=== PATIENT | female | born 1945 | race Caucasian/White ===

== ENCOUNTER 2020-02-06 07:44 | Day surgery (SDC) | payer MEDICARE ==
[2020-02-02 15:37] LABS: BASOPHILS % (AUTO) 0.7 % (0-1); EOSINOPHILS # (AUTO) 0.1 X10'3 (0-0.9); EOSINOPHILS % (AUTO) 1.7 % (0-6); HEMATOCRIT 39.5 % (35.0-45.0); HEMOGLOBIN 12.8 g/dl (12.0-16.0); LYMPHOCYTES # (AUTO) 1.1 X10'3 (1.1-4.8); LYMPHOCYTES % (AUTO) 19.3 % (21-51); MEAN CORPUSCULAR HGB CONC 32.4 g/dL (33.0-36.5); MEAN CORPUSCULAR VOLUME 92.7 FL (78-98); MEAN PLATELET VOLUME 8.1 FL (7.4-10.4); MONOCYTES # (AUTO) 0.7 X10'3 (0-0.9); MONOCYTES % (AUTO) 11.2 % (2-12); NEUTROPHILS # (AUTO) 3.9 X10'3 (1.8-7.7); NEUTROPHILS % (AUTO) 67.1 % (42-75); PLATELET COUNT 268 X10'3 (140-440); RED BLOOD COUNT 4.26 X10'6 (4.20-5.60); RED CELL DISTRIBUTION WIDTH 13.4 % (11.5-14.5); WHITE BLOOD COUNT 5.8 X10'3 (4.5-11.0)
[2020-02-02 15:41] LABS: ALBUMIN 3.5 G/DL (3.4-5.0); ANION GAP 7 (8-16); BLOOD UREA NITROGEN 18 MG/DL (7-18); CALCIUM 9.2 MG/DL (8.5-10.1); CHLORIDE 109 MMOL/L (99-107); GLUCOSE 99 MG/DL (70-104); POTASSIUM 4.1 MMOL/L (3.5-5.1); SODIUM 145 MMOL/L (135-145); TOTAL CARBON DIOXIDE 29.5 MMOL/L (24-32); eGFR 61 ML/MIN
[2020-02-02 15:45] LABS: PARTIAL THROMBOPLASTIN TIME 23 SECONDS (22-32)
[~2020-02-06] VITALS: Ht 175.3 cm; Wt 66.2 kg
[2020-02-06] VITALS (12 sets, daily range): BP systolic 102–136; BP diastolic 53–83
[2020-02-06] MEDS ORDERED: normal saline 1,000 ML IV SCH (08:00)
[2020-02-06] MEDS ORDERED: diphenhydrAMINE 25mg capsule PO PRN (08:00)
[2020-02-06] MEDS ORDERED: LORazepam 0.5 MG tablet PO PRN (08:00)
[2020-02-06] MEDS ORDERED: ASPI-611 PO (08:24)
[2020-02-06] MEDS ORDERED: METO25TA6 PO (08:24)
[2020-02-06] MEDS ORDERED: ATOR20TA PO (08:24)
[2020-02-06] MEDS ORDERED: OLME20TA23 PO (08:24)
[2020-02-06] MEDS ORDERED: iohexol 350MG/ML 100ml bottle IV ONE (09:21)
[2020-02-06] MEDS ORDERED: midazolam 2 mg/2 ml injection ONE (09:21)
[2020-02-06] MEDS ORDERED: fentaNYL/PF 50MCG/1 ML 2ML syringe ONE (09:21)
[2020-02-06] MEDS ORDERED: LIDOcaine 1% (10mg/ml)w/preservative injection 20ml MDV ONE (09:21)
[2020-02-06] MEDS ORDERED: nitroGLYCERIN-Tridil 50MG/D5W 250 ML IV ONE (10:00)
[2020-02-06] MEDS ORDERED: heparin 1,000unit/ml 10ml vial 10 ML ONE (10:00)
[2020-02-06] MEDS ORDERED: verapamil 2.5 mg/ml inj IV ONE (10:00)
[2020-02-06] MEDS ORDERED: nitroGLYCERIN 0.4mg SUBLingual tab SL PRN (11:35)
[2020-02-06] MEDS ORDERED: ondansetron/PF 4mg/2ml inj IV PRN (11:35)
[2020-02-06] MEDS ORDERED: OXAZEpam 15mg capsule PO PRN (11:35)
[2020-02-06] MEDS ORDERED: proCHLORperazine 10 MG/2 ml inj IV PRN (11:35)
== END 2020-02-06 14:35 | disposition home or self-care (01) ==
LOC: SSTAY O 07:44 → MED 3N 07:44 → SSTAY O 14:35
PROVIDERS: ATTEND Internal Medicine Interventional Cardiology
DX: R94.39 Abnormal result of other cardiovascular function study (principal); I10 Essential (primary) hypertension; E78.5 Hyperlipidemia, unspecified; J44.9 Chronic obstructive pulmonary disease, unspecified; Z79.01 Long term (current) use of anticoagulants; Z79.899 Other long term (current) drug therapy; Z82.3 Family history of stroke; Z82.49 Family history of ischemic heart disease and other diseases of the circulatory system
CPT/HCPCS: 36415; 80048; 85025; 85610; 85730; 93005; 93458; 99152; C1769; C1894; J1644; J2001; J2250; J3010; Q9967; A4620; A5120; GO378; J3490

== ENCOUNTER 2025-08-16 12:25 | Inpatient (IN) | payer MEDICARE, MEDICAID ==
[2025-08-16] VITALS (12 sets, daily range): BP systolic 96–169; BP diastolic 46–93; PULSE 70–88; RESP 12–20; O2SAT 88–100
[~2025-08-16] VITALS: Ht 175.3 cm; Wt 57.1 kg
[~2025-08-16 12:25] MED LIST: ATOR20TA66 PO; OMEP20CA16 PO
[2025-08-16] MEDS: HYDROmorphone inj. 0.5 MG/0.5 ML DISP.SYRIN IV ONE (12:30)
--- NOTE | 2025-08-16 12:31 | ELECTROCARDIOGRAPH REPORT ---
[facility] Test Date: 2025-08-16 Test Time: 12:28:13 Pat Name: KIRILL CASEY Department: EMERGENCY ROOM Room: Gender: F Shearing Machine Tender: : 1945 Requested By: AMADO ROBERTSON Order Number: [id number] Reading MD: Measurements Intervals [employer] Rate: 94 P: 80 UT: 141 QRS: 0 QRSD: 100 T: 87 QT: 373 QTc: 467 Interpretive Statements Atrial-sensed ventricular-paced rhythm No further analysis attempted due to paced rhythm Please click the below link to view image of tracing.
[2025-08-16] MEDS: ondansetron/PF 4mg/2ml inj IV ONE (12:33)
[2025-08-16 12:39] LABS: MEAN PLATELET VOLUME 8.1 FL (7.4-10.4); RED CELL DISTRIBUTION WIDTH 14.0 % (11.5-14.5)
[2025-08-16] MEDS ORDERED: LIDOcaine 1% 30ml preserv. free vial ONE (12:39)
[2025-08-16] MEDS ORDERED: phenylephrine 10mg/ml inj. ONE (12:39)
--- NOTE | 2025-08-16 12:47 | Physician Documentation ---
Addendum CHIEF COMPLAINT/HPI: The patient is an 80-year-old female who comes here from Dr. Keyanna Crowder's office (cardiology) after he phoned me to state that she has a cardiac perforation with a pericardial effusion and he is arranging for her to go to the laborer demolition for drainage and repair. REVIEW OF SYSTEMS: Unable to obtain secondary to acuity of condition. PHYSICAL EXAMINATION: Vitals and nursing note reviewed. Constitutional: General: Patient is awake, not alert. Appearance: Pale, hypotensive. Patient is ill-appearing.. Cardiovascular: Rate and Rhythm: Normal rate and regular rhythm. Heart sounds: Distant heart sounds. Pulmonary: Effort: No respiratory distress. Breath sounds: No wheezing, rhonchi or rales. MEDICAL DECISION MAKING: This 80-year-old female arrives here with blood pressures as low as 60/38. I initiated a fluid bolus of 500 cc normal saline and push dose epinephrine of 0.1 mg. Fortunately, the laborer demolition team arrived and took her promptly to the laborer demolition for definitive therapy. Departure Disposition: ADMITTED INPATIENT Admitted to Inpatient Unit: to [facility] Admission Level of Care: Critcal Care Impression: Primary Impression: Pericardial effusion with cardiac tamponade Condition: Critical DE AMADO CHRISTINA MD Aug 16, 2025 12:47
[2025-08-16] MEDS ORDERED: midazolam 1 mg/ML 2ml injection ONE ×3 (12:52→14:13)
[2025-08-16] MEDS ORDERED: fentaNYL/PF 50MCG/1 ML 2ML syringe ONE ×2 (12:54→14:13)
[2025-08-16 13:01] LABS: CREATININE 1.00 MG/DL (0.40-0.90); PRO BRAIN NATRIURETIC PEPTIDE 689 PG/ML (0-450); TOTAL CARBON DIOXIDE 26.8 MMOL/L (24-32); eCRCL 46 ML/MIN; eGFR 53 ML/MIN
[2025-08-16] MEDS ORDERED: morphine 4 MG/ML inj SYRINge IV PRN (13:50)
[2025-08-16] MEDS: morphine 4 MG/ML inj SYRINge IV PRN ×2 (13:57→18:56)
[2025-08-16] MEDS ORDERED: epiNEPHrine 0.1mg/ml 10ml syringe ONE (14:00)
[2025-08-16] MEDS ORDERED: ALEN70TA80 PO (14:55)
[2025-08-16] MEDS ORDERED: APIX5TAB3 PO (14:55)
[2025-08-16] MEDS ORDERED: EMPA10TA PO (14:55)
[2025-08-16] MEDS ORDERED: ROSU10TA98 PO (14:55)
[2025-08-16] MEDS ORDERED: LOSA25TA41 PO (14:55)
[2025-08-16] MEDS ORDERED: PREG25CA19 PO (14:55)
[2025-08-16] MEDS ORDERED: METO-395 PO (14:55)
[2025-08-16] MEDS ORDERED: CYCL-1 PO (14:55)
--- NOTE | 2025-08-16 15:09 | HISTORY AND PHYSICAL ---
History of Present Illness End CC ~ Admission Diagnosis:.: HYPOTENSION History of Present Illness S/P PPM with complicated intra-op resulting in Hypotension due to Hemopericardium + Tamponade requiring urgent pericardiocentesis of 500ml of blood. Allergies: Coded Allergies: gabapentin (Verified Allergy, Unknown, unknown, 08/16/25) Home Medications Home Medications Active Reported Pregabalin 25 Mg Capsule 1 Cap PO BID Cyclobenzaprine* (Cyclobenzaprine HCl) 10 Mg Tablet 1 Tab PO BID Rosuvastatin Calcium 10 Mg Tablet 1 Tab PO HS Alendronate Sodium 70 Mg Tablet 1 Tab PO Q7D Losartan Potassium 25 Mg Tablet 1 Tab PO DAILY Jardiance (Empagliflozin) 10 Mg Tablet 1 Tab PO DAILY Eliquis (Apixaban) 5 Mg Tablet 1 Tab PO BID Metoprolol Succinate 25 Mg Tab.sr.24h 1 Tab PO DAILY Past Surgical History Past Surgical History: noncontributory Past Family History Patient History: FH: CABG (coronary artery bypass surgery) FATHER FH: heart failure FATHER FH: stroke MOTHER, Onset:60 years & older FH: sudden cardiac (SCD) Brother, Onset:50's - 60 Past Social History Alcohol Use: None Drug Use: None Advance Care Planning Advanced Care plannin - 30 Minutes Review of Systems Psychiatric: Reports: anxiety Physical Exam Last Vital Signs recorded: Heart Rate: 88, Respiratory Rate: 14, BP: 125/65, Pulse Oximetry: 100, Weight: 75.000 General Appearance: mild distress Neck: full range of motion Respiratory: lungs clear Cardiovascular: normal peripheral pulses, regular rate, rhythm Peripheral Pulses: 1+ carotid (R), 1+ carotid (L), 1+ radial (R), 1+ radial (L), 1+ femoral (R), 1+ femoral (L), 1+ dorsalis pedis (R), 1+ dorsalis pedis (L), 1+ posterior tib (R), 1+ posterior tib (L), 1+ other Gastrointestinal: bowels sounds present Extremities: normal inspection Neurologic: oriented x4 Psychiatric: anxiety Results Diagram Lab Result Diagram: 08/16/25 1233 08/16/25 1233 Assessment/Plan 1-Hemopericardium/Tamponade -S/P Pericardiocentesis -Monitor output -Echo -Supportive Jackie Arevalo CC time 35min LAMINE AREVALO MD Aug 16, 2025 15:09
[2025-08-16] MEDS: HYDROcodone/acetaminophen 10/325mg tab PO PRN (16:25)
[2025-08-16] MEDS ORDERED: ondansetron/PF 4mg/2ml inj IV PRN (16:50)
--- NOTE | 2025-08-16 18:48 | CARDIOLOGY REPORT ---
APPROVED REPORT EXAM: Limited 2D Echocardiogram. Patient Location: CARDIAC L D RN Blood Pressure: 116/56 mmHg Heart Rate: 85 bpm Rhythm: SINUS Indications PERICARDIAL EFFUSION / TAMPONADE S/P BIVENTRICULAR PACEMAKER INSERTION 450 CCS OF BLOODY PERICARDIAL FLUID REMOVED Overhead Line Worker: Padmini Crowder MD Previous echo: 07/11/25 [facility] (EF 30-40%, mild septal hypertrophy, mild TR, mild MR, no pericardial effusion) LEFT VENTRICLE Normal LV size and wall thickness. Overall systolic function is moderately reduced. LVEF is about 40%. RIGHT VENTRICLE RV appears normal in size with diastolic collapse noted on M-Mode. Function appears improved s/p pericardiocentesis. Pacemaker visualized in right heart and appears to be extending out of the RV free wall/apex into the pericardial space. PERICARDIUM Moderate circumferential pericardial effusion with starting signs of hemodynamic compromise. Wire inserted into pericardium, 450 ccs of bloody pericardial fluid removed. No obvious residual pericardial effusion. Other Information Study Quality: Technically limited due to urgency. Conclusion Normal LV size and wall thickness. Overall systolic function is moderately reduced. LVEF is about 40%. RV appears normal in size with diastolic collapse noted on M-Mode. Function appears improved s/p pericardiocentesis. Pacemaker visualized in right heart and appears to be extending out of the RV free wall/apex into the pericardial space. Moderate circumferential pericardial effusion with starting signs of hemodynamic compromise. Wire inserted into pericardium, 450 ccs of bloody pericardial fluid removed. No obvious residual pericardial effusion.
--- NOTE | 2025-08-16 18:54 | CARDIOLOGY REPORT ---
APPROVED REPORT EXAM: Limited 2D Echocardiogram. Patient Location: 2009 Blood Pressure: 145/78 mmHg Heart Rate: 80 bpm Rhythm: NSR Indications Reasses pericardial effusion post pericardiocentesis Pericardialcentesis 1300 - 500 cc fluid removal PACEMAKER 08/16/25 1100 CVC Concrete Technician: Colby Crowder MD Previous echo: 08/16/25 [facility] EF: 40%; nlLVL modlv DECR FX; nlRV; modPE-W/ early HEMOcomp; LEFT VENTRICLE Normal LV size and wall thickness. Overall systolic function is mildly decreased function. LVEF is 40%. RIGHT VENTRICLE RV is normal size and function. Pacemaker wire in right heart. RV apical wire appears to be thru the apex. PERICARDIUM Normal pericardium. Trivial effusion without without hemodynamic compromise. Conclusion Normal LV size and wall thickness. Overall systolic function is mildly decreased function. LVEF is 40%. RV is normal size and function. Pacemaker wire in right heart. RV apical wire appears to be thru the apex. Normal pericardium. Trivial effusion without without hemodynamic compromise.
--- NOTE | 2025-08-16 19:10 | CARDIAC CATH REPORT ---
Cardiac Cath Report Providers to CC CC: HUONG RODRÍGUEZ MD Procedure Comments: 1. Pericardiocentesis Brief History/Indications: 80yo woman who had BiV ICD placed complicated by tamponade referred for evaluation Techniques: Consent was obtained and a time-out was completed verifying correct patient, procedure, site, and positioning. The patients thorax was prepped and draped in sterile fashion. 1% Lidocaine was used to anesthetize the surrounding skin area. Ultrasound was used to identify the fluid and observe the needle entering the pericardial space. The needle was introduced into the pericardial space. The wire was then advanced into the space over which a pericardial drain placed after which approximately 800cccc of bloody fluid was drained. The drain was sutured in place. The patient tolerated the procedure well and there were no complications. Findings Findings: ~ 450cc of bloody pericardial effusion. SBP improved post pericardiocentesis to ~ 120mmHg Results Results: 1. Tamponade with ~ 450cc of bloody pericardial effusion drained. 2. Keep drain in place, repeat TTE at 4 hours if no further drainage FLOR[place] RODRÍGUEZ MD Aug 16, 2025 19:10
[2025-08-16] MEDS ORDERED: hydrALAZINE 20mg/ml inj. IV PRN (20:20)
[2025-08-16] MEDS: metoprolol succinate 25mg (24-HOUR) SR. Tablet PO SCH (20:59)
[2025-08-17] VITALS (28 sets, daily range): BP systolic 73–131; BP diastolic 31–58; PULSE 60–84; RESP 10–22; O2SAT 97–100
[2025-08-17 04:57] LABS: MEAN PLATELET VOLUME 9.1 FL (7.4-10.4); RED CELL DISTRIBUTION WIDTH 14.4 % (11.5-14.5)
[2025-08-17 06:18] LABS: CREATININE 1.07 MG/DL (0.40-0.90); PHOSPHORUS 4.3 MG/DL (2.3-4.5); TOTAL CARBON DIOXIDE 27.2 MMOL/L (24-32); eCRCL 37 ML/MIN; eGFR 49 ML/MIN
[2025-08-17] MEDS ORDERED: HYDR-3973 PO (07:34)
[2025-08-17] MEDS: normal saline 1000ml 1,000 ML IV ONE ×2 (10:09→14:16)
--- NOTE | 2025-08-17 11:59 | PROGRESS NOTE- Residence ---
Progress Note - Resident Providers to CC Resident Creating Document: SHAI PRITCHARD, NAYANA ~ Antibiotic Timeout Antibiotic Ordered?: No Subjective Patient seen and examined at the bedside today. The patient stated that she was feeling dizzy since waking up today morning. She denied any shortness of breath, chest pain, nausea or vomiting. She denied any other concerns or complaints at the moment. Objective Vital Signs Date Time Temp Pulse Resp B/P (MAP) Pulse Ox O2 Delivery O2 Flow Rate FiO2 08/17/25 10:30 97.9 72 12 95/51 (66) 100 Nasal Cannula 2.0 Result Diagram: 08/17/25 0440 08/17/25 0507 General: Awake and Alert, appears weak. HEENT: Conjunctiva pink, Sclera clear, Mucus Membranes moist. Neck: Supple without masses and tenderness. Resp: Unlabored. Lungs clear to auscultation bilaterally. Heart: Regular Rate and rhythm, normal S1 and S2 without murmur, rub or gallop. Abdomen: Soft and non tender no organomegaly Extremities: No cyanosis,clubbing or edema. Skin: Warm and Dry. Neurology: Oriented to time place and person. Cranial nerves 2-12 intact. No focal motor or sensory deficits. Assessment Assessment 80 years old female with past medical history congestive heart failure with reduced ejection fraction, atrial fibrillation, history of colon cancer, hyperlipidemia, is admitted in the ICU for evaluation and management of obstructive shock secondary to cardiac tamponade which she developed while having a permanent pacemaker placed yesterday. Plan Plan Obstructive shock Cardiac tamponade Hemopericardium Status post pericardiocentesis POD #1 Patient underwent emergent pericardiocentesis by Dr. Crowder yesterday and approximately 450 cc of fluid was drained. There was a drain placed which has been discontinued today morning by Dr. Crowder. The patient underwent a repeat echocardiogram post pericardiocentesis which shows overall systolic function mildly decreased and left ventricular ejection fraction of 40%. There was trivial effusion without hemodynamic compromise the post pericardiocentesis. The patient appears to be hypotensive today morning. Dr. Crowder was consulted who recommended IV fluid resuscitation and a repeat echocardiogram. We will follow up with a repeat echocardiogram. Continue management as per the protective signal repairer. History of AFib The patient appears to be in sinus rhythm currently. Her home Eliquis is on hold. Heart rate is controlled. Congestive heart failure with reduced ejection fraction Currently not in acute exacerbation The patient does not appear to be fluid overloaded. Currently on 2 L oxygen via nasal cannula. We will wean the patient off oxygen as tolerated. Skip Hoist Engineer managing the patient's primarily. We will restart GDMT once the patient is hemodynamically stable. Hyperlipidemia Awaiting med reconciliation. DVT prophylaxis: SCDs GI prophylaxis: None Diet: Heart healthy diet Disposition: Continue medical management and close monitoring of the patient's vitals. Follow up with a repeat echocardiography as recommended by the protective signal repairer. In case the patient's condition stabilizes she will be downgraded to PCU in the next 12-24 hours. Shai Pritchard MD Internal Medicine Resident, PGY-3 Date of Service: Aug 17, 2025 Billing Provider: LAMINE NICHOLSON MD,SHAI NARAYAN, RES Aug 17, 2025 11:59
[2025-08-17] MEDS: midodrine 5mg tablet PO SCH (12:16)
[2025-08-17] MEDS: NORepinephrine 8mg/ 250ml NS 250 ML IV SCH (15:23)
[2025-08-17] MEDS: NORepinephrine 8mg/ 250ml NS 250 ML IV ONE (15:24)
--- NOTE | 2025-08-17 17:32 | PROGRESS NOTE ---
Progress Note Cardiology Providers to CC ~ Subjective Subjective Briefly, patient is an 80-year-old female who presented secondary to acute pericardial effusion with tamponade. He has not had history of systolic heart failure. She was undergoing by BV ICD placement. Had approximately 450 cc of bloody pericardial effusion removed. Prior to pericardial centesis she had significant hypotension which improved after procedure. Pericardial drain was removed after a few hours. This morning underwent limited echo with no significant pericardial effusion found. Patient is resting comfortably in the ICU. She reports her pain is currently well-controlled but does have pain with inspiration. She has a had low blood pressure and is now on Levophed. Was dizzy this morning when going from as lying position to a sitting position. She was found to be orthostatic. IV fluids were administered. She had her pacemaker interrogated and has been normal function in all of her leads. Objective Result Diagram: 08/17/25 0440 08/17/25 0507 Objective General: Awake, alert, oriented. No apparent distress. Fatigued appearing. Respiratory: Lungs are clear to auscultation bilaterally. No respiratory distress. Chest: Normal shape and size. No accessory muscle use. Cardiovascular: Regular rate and rhythm. S1-S2. No murmur, gallop, rub. Extremities: No lower extremity edema,. Neurologic: Alert and oriented x4. Nonfocal Psychiatric: Normal mood and affect. Skin: Normal color. Warm and dry. Problem\Assessment\Plan Additional Plan Patient presented for pericardial effusion with tamponade falling ICD placement. The following is her problem list: Pericardial effusion with tamponade Resolved after pericardial centesis. --we will monitor closely. Follow up outpatient. Hypotension Not currently with the obstruction therefore not the underlying etiology. BiV ICD was interrogated with normal device function in the leads. Currently on Levophed. Management per the windows deployment technician group. Heart failure with reduced ejection fraction, chronic Currently hypotensive. Recommend restarting guideline directed medical therapy as vital signs allow Case discussed with Dr. Josue Crowder. For any further cardiology needs please contact him directly. Supervising Physician: MARQUES Soto NP Aug 17, 2025 17:32
[2025-08-17] MEDS: COMMUNICATION ORDER 1 EA MISC MC ONE (19:25)
[2025-08-17] MEDS: metoprolol succinate 25mg (24-HOUR) SR. Tablet PO SCH (20:00)
--- NOTE | 2025-08-17 20:49 | PROGRESS NOTE ---
Daily Progress Note Providers to CC ~ Antibiotic Timeout Antibiotic Ordered?: No Subjective Patient seen and examined at the bedside today. The patient stated that she was feeling dizzy since waking up today morning. Patient was hypotensive and evaluated in CICU today. was present at bedside Objective Vital Signs Date Time Temp Pulse Resp B/P (MAP) Pulse Ox O2 Delivery O2 Flow Rate FiO2 08/17/25 20:14 123/54 08/17/25 18:00 65 17 100 Nasal Cannula 2.0 08/17/25 10:30 97.9 Result Diagram: 08/17/25 0440 08/17/25 0507 General-patient is ill-appearing, able to communicate HEENT-atraumatic normocephalic, neck supple without elevated JVD, Eyes-no icterus or pallor seen in eyes Chest-clear to auscultation bilaterally, breathing nonlabored no tachypnea, no wheezing, no crepitation, no crackles. Heart-S1-S2 normal, regular heart rate no murmur Abdomen bowel sounds positive on auscultation, soft nondistended nontender no guarding, no rigidity Neurology-grossly intact, nonfocal awake cooperated during physical examination Extremity- no pedal edema Problem\Assessment\Plan 80 years old female with past medical history congestive heart failure with reduced ejection fraction, atrial fibrillation, history of colon cancer, hyperlipidemia, is admitted in the ICU for evaluation and management of obstructive shock secondary to cardiac tamponade which she developed while having a permanent pacemaker placed yesterday. Obstructive shock Cardiac tamponade Hemopericardium Status post pericardiocentesis POD #1 History of AFib Congestive heart failure with reduced ejection fraction Hyperlipidemia Patient's current condition is guarded we will continue to follow patient along with the worldwide chief creative officer team. Date of Service: Aug 17, 2025 Billing Provider: NIKUNJ SAINI MD Common Visit Codes: [id number] INP/OBS CARE(MOD) NIKUNJ SAINI MD Aug 17, 2025 20:49
[2025-08-18] VITALS (12 sets, daily range): BP systolic 103–129; BP diastolic 46–67; PULSE 61–80; RESP 10–19; O2SAT 95–100
--- NOTE | 2025-08-18 05:24 | CARDIOLOGY REPORT ---
APPROVED REPORT EXAM: Limited 2D, Doppler, and color-flow Echocardiogram. Patient Location: 2009 Blood Pressure: 95/51 mmHg Heart Rate: 76 bpm Indications Hypotension Re-Evaluate Pericardial Effusion/Tamponade GLASS FURNACE TENDER: Colby Crowder MD Previous ECHO: 08[facility]/25[facility], EF: 40; trivial effusion; Pacemaker wire appears to be throught the RV apex 2D Dimensions IVC 19.56 mm Tricuspid Valve TR P. Velocity 213 cm/s RAP ESTIMATE 10 mmHg TR Peak Gr. 18 mmHg RVSP 28 mmHg LEFT VENTRICLE Normal LV size and wall thickness. Overall systolic function is moderately decreased. LVEF is 40-45%. RIGHT VENTRICLE Right ventricle appears mildly dilated with adequate function. GRE[employer]ESSELS The IVC is normal in size and collapses >50% with inspiration. PERICARDIUM Trace circumferential pericardial effusion. Pacemaker wire appears to be through the RV apex. No echo indications of pericardial tamponade. Other Information Study Quality: Fair Conclusion Normal LV size and wall thickness. Overall systolic function is moderately decreased. LVEF is 40-45%. Right ventricle appears mildly dilated with adequate function. Trace circumferential pericardial effusion. Pacemaker wire appears to be through the RV apex. No echo indications of pericardial tamponade.
[2025-08-18 06:08] LABS: MEAN PLATELET VOLUME 8.7 FL (7.4-10.4); RED CELL DISTRIBUTION WIDTH 13.1 % (11.5-14.5)
--- NOTE | 2025-08-18 06:17 | PROGRESS NOTE ---
Progress Note Dictate Providers to CC ~ Progress Note: No new acute issues overnight. Off pressors Central Line/PICC still needed: N\A Connors Indications Met/Not Met: F/C Indications Not Met Antibiotic Ordered?: No Subjective Subjective Comfortable Objective Vitals Vital Signs Date Time Temp Pulse Resp B/P (MAP) Pulse Ox O2 Delivery O2 Flow Rate FiO2 08/18/25 06:00 97.7 64 14 110/46 (67) 99 Nasal Cannula 2.0 Lab Results: 08/17/25 0440 08/17/25 0507 Objective Heart: S1-2 reg Lungs: Clear Abdomen: Soft, non-tender, BS (+) Ext: No Edema Problem\Assessment\Plan Additional Plan 1-S/P PPM -Supportive Tx 2-Hypotension: Cardiac -Off pressors Anticipate transfer out of ICU soon A Mickey Sepsis Screening Reassessment Date: Aug 18, 2025 LAMINE NICHOLSON MD Aug 18, 2025 06:17
[2025-08-18 06:31] LABS: CREATININE 1.03 MG/DL (0.40-0.90); PHOSPHORUS 2.4 MG/DL (2.3-4.5); TOTAL CARBON DIOXIDE 23.5 MMOL/L (24-32); eCRCL 39 ML/MIN; eGFR 51 ML/MIN
[2025-08-18] MEDS ORDERED: MIDO5TAB4 PO (11:01)
--- NOTE | 2025-08-18 11:21 | DISCHARGE SUMMARY ---
Discharge Summary Providers to CC CC: HUONG RODRÍGUEZ MD ~ Discharge Summary Admission Diagnosis: Pericardial Effusion Hospital Course DATE OF ADMISSION: 08/16/2025 DATE OF DISCHARGE: 08/18/2025 Discharge Diagnosis\Comment: Tamponade status post pericardial Effusion Operations\Procedures: Pericardiocentesis Consultants: [employer] Complications: None Condition on DC: Stable New Medications: Midodrine HCl (Midodrine HCl) 5 Mg Tablet 10 MG PO TID@0800,1200,1600 PRN for low blood pressure for 7 Days, #21 TAB Discontinued Medications: Alendronate Sodium (Alendronate Sodium) 70 Mg Tablet 1 TAB PO Q7D Apixaban (Eliquis) 5 Mg Tablet 1 TAB PO BID Cyclobenzaprine* (Cyclobenzaprine*) 10 Mg Tablet 1 TAB PO BID Empagliflozin (Jardiance) 10 Mg Tablet 1 TAB PO DAILY Losartan Potassium (Losartan Potassium) 25 Mg Tablet 1 TAB PO DAILY Metoprolol Succinate (Metoprolol Succinate) 25 Mg Tab.sr.24h 1 TAB PO DAILY Pregabalin (Pregabalin) 25 Mg Capsule 1 CAP PO BID Rosuvastatin Calcium (Rosuvastatin Calcium) 10 Mg Tablet 1 TAB PO HS Discharge Summary: 80yo woman with HTN, HLD, HFrEF admitted after BiV ICD placement and noted to have pericardial effusion. Underwent pericardiocentesis with drainage of 450cc bloody fluid. The pericardial drain was left in place. Did not have any persistent collection in the drain, serial echo's without re-accumulution of fluid. She did require short-term use of Levophed which was subsequently weaned off. She has since been up and ambulated without issues. Device interrogation shows appropriate function of device/leads. *Problems/Diagnosis: (1) Pericardial effusion with cardiac tamponade Status: Acute Total Time Spent on D/C: Up to 30 Minutes Counseling Services Smoking & Tobacco Cessation: N/A [place] RODRÍGUEZ MD Aug 18, 2025 11:21
== END 2025-08-18 12:00 | disposition home or self-care (01) | DRG 919 ==
LOC: ER 12:26 → ED HOLD 12:49 → CICU 2S 13:48
PROVIDERS: ADMIT Student in an Organized Health Care Education/Training Program; ATTEND Student in an Organized Health Care Education/Training Program
PROC: 0W9D30Z Drainage of Pericardial Cavity with Drainage Device, Percutaneous Approach (ICD-10-PCS; principal; 2025-08-16)
PROC: 4B02XTZ Measurement of Cardiac Defibrillator, External Approach (ICD-10-PCS; 2025-08-18)
DX: I97.51 Accidental puncture and laceration of a circulatory system organ or structure during a circulatory system procedure (principal); R57.8 Other shock; I31.39 Other pericardial effusion (noninflammatory); I50.22 Chronic systolic (congestive) heart failure; I31.4 Cardiac tamponade; I31.2 Hemopericardium, not elsewhere classified; I11.0 Hypertensive heart disease with heart failure; E78.5 Hyperlipidemia, unspecified; Z79.01 Long term (current) use of anticoagulants; Z95.810 Presence of automatic (implantable) cardiac defibrillator; Z82.3 Family history of stroke; Z88.8 Allergy status to other drugs, medicaments and biological substances; Y92.234 Operating room of hospital as the place of occurrence of the external cause
CPT/HCPCS: 33016; 36415; 80048; 80053; 83735; 83880; 84100; 84484; 85025; 93005; 93308; 96374; 96375; 96376; 99152; 99153; 99285; A6258; A6449; G0378; J0169; J2003; J2250; J2270; J2371; J2405; J3010; J7030